=== PATIENT | male | born 1935 | race Caucasian/White ===

== ENCOUNTER 2023-06-05 18:06 | Inpatient (IN) | payer MEDICARE ==
[~2023-06-05] VITALS: Ht 180.3 cm; Wt 58.6 kg
[2023-06-05 20:27] LABS: BASOPHILS % (AUTO) 0.8 % (0.0-2.0); EOSINOPHILS % (AUTO) 2.1 % (1.0-6.0); HEMATOCRIT 40.7 % (41-53); HEMOGLOBIN 13.3 g/dL (13.5-17.5); LYMPHOCYTES # (AUTO) 1.3 K/uL (1.0-4.8); LYMPHOCYTES % (AUTO) 14.9 % (22.0-44.0); MEAN CORPUSCULAR HEMOGLOBIN 31.2 pg (26.0-34.0); MEAN CORPUSCULAR HGB CONC 32.7 G/dL (31.0-37.0); MEAN CORPUSCULAR VOLUME 96 fL (80-100); MONOCYTES # (AUTO) 0.8 K/uL (0.1-1.0); MONOCYTES % (AUTO) 9.9 % (2.0-9.0); NEUTROPHILS # (AUTO) 6.1 K/uL (1.8-7.7); NEUTROPHILS % (AUTO) 72.3 % (40.0-70.0); PLATELET COUNT (AUTO) 206 K/uL (150-450); RED BLOOD CELL COUNT(AUTO) 4.26 MIL/uL (4.50-5.90); RED CELL DISTRIBUTION WIDTH 13.7 % (11.5-14.5); WHITE BLOOD COUNT (AUTO) 8.5 K/uL (4.5-11.0)
[2023-06-05 20:37] LABS: ANION GAP 12 mmol/L (8-16); CALCIUM, TOTAL 8.5 mg/dL (8.8-10.5); CARBON DIOXIDE 25 mmol/L (22-29); CHLORIDE 100 mmol/L (98-107); CREATININE 1.09 mg/dL (0.60-1.30); GLOMERULAR FILTR. RATE CALC > 60 mL/min (>60); GLUCOSE,RANDOM 95 mg/dL (70-110); POTASSIUM 3.5 mmol/L (3.5-5.1); SODIUM SERUM 137 mmol/L (136-145); UREA NITROGEN, BLOOD 17 mg/dL (7-18)
[2023-06-05 20:43] LABS: ALCOHOL, BLOOD (SERUM) 160 mg/dL (0-10)
[2023-06-05 20:44] LABS: ALANINE AMINOTRANSFERASE 17 U/L (12-78); ALBUMIN 3.6 g/dL (3.4-5.0); ALKALINE PHOSPHATASE 100 U/L (46-116); ASPARTATE AMINOTRANSFERASE 21 U/L (15-37); BILIRUBIN,TOTAL 0.3 mg/dL (0.1-1.0); TOTAL PROTEIN, SERUM 6.5 g/dL (6.4-8.2)
[2023-06-05] MEDS ORDERED: MAGNESIUM SULFATE 2 GM, MVI, ADULT NO.1 WITH VIT K 10 ML, THIAMINE 100 MG, FOLIC ACID 1... IV ONE ×5 (21:45)
[2023-06-05] MEDS ORDERED: LORazepam 2 MG/ML VIAL IVP ONE (21:45)
[2023-06-05] MEDS ORDERED: ONDANSETRON HCL 4 MG/2 ML VIAL IVP PRN (23:00)
[2023-06-05] MEDS ORDERED: ACETAMINOPHEN 325 MG TABLET PO PRN (23:00)
[2023-06-05] MEDS ORDERED: HALOPERIDOL LACTATE 5 MG/ML VIAL IVP ONE (23:30)
[2023-06-06] MEDS ORDERED: ATOR10TA69 PO (04:43)
[2023-06-06] MEDS ORDERED: CLON0.2T2 PO (04:43)
[2023-06-06] MEDS ORDERED: LISI2.5T13 PO (04:43)
[2023-06-06] MEDS ORDERED: ERYT3.5O8 OU (04:43)
[2023-06-06] MEDS ORDERED: PREDAOS OU (04:43)
[2023-06-06] MEDS: 1: MAGNESIUM SULFATE 2 GM, MVI, ADULT NO.1 WITH VIT K 10 ML, THIAMINE 100 MG, FOLIC ACID IV SCH ×10 (06:25→21:08)
[2023-06-06] MEDS ORDERED: SODIUM CHLORIDE 0.9% 1,000 ML ONE ×2 (06:26→14:50)
[2023-06-06] MEDS ORDERED: LORazepam 2 MG TABLET PO PRN ×2 (07:00)
[2023-06-06] MEDS: LORazepam 2 MG TABLET PO SCH ×4 (08:14→21:08)
[2023-06-06] MEDS: DOCUSATE SODIUM 100 MG CAPSULE PO SCH ×2 (08:17→21:08)
[2023-06-06] MEDS: HydrALAZINE HCL 20 MG/ML VIAL IVP PRN (11:39)
[2023-06-06 15:45] VITALS: BP 116/63; PULSE 72; RESP 20; TEMP 97.9
[2023-06-06 19:41] VITALS: BP 166/88; PULSE 102; RESP 22; TEMP 98
[2023-06-07 00:15] VITALS: BP 156/96; PULSE 99; RESP 20; TEMP 98.4
[2023-06-07] MEDS: HEPARIN SODIUM,PORCINE 5,000 UNITS/ML VIAL SQ SCH ×4 (01:14→23:23)
[2023-06-07 04:27] VITALS: BP 148/89; PULSE 94; RESP 20; TEMP 97.9
[2023-06-07 08:08] VITALS: BP 125/78; PULSE 96; RESP 18; TEMP 98
[2023-06-07] MEDS: DOCUSATE SODIUM 100 MG CAPSULE PO SCH ×2 (08:54→21:00)
[2023-06-07] MEDS: LORazepam 2 MG TABLET PO SCH ×4 (08:54→19:52)
[2023-06-07] MEDS ORDERED: [UNRECOGNIZED DRUG - OTHER] PO SCH (09:00)
[2023-06-07] MEDS: ATORVASTATIN CALCIUM 10 MG TABLET PO SCH (09:07)
[2023-06-07] MEDS: 1: MAGNESIUM SULFATE 2 GM, MVI, ADULT NO.1 WITH VIT K 10 ML, THIAMINE 100 MG, FOLIC ACID IV SCH ×10 (09:07→22:22)
[2023-06-07 11:15] VITALS: BP 147/85; PULSE 87; RESP 18; TEMP 98
[2023-06-07 16:18] VITALS: BP 116/77; PULSE 92; RESP 18; TEMP 98
[2023-06-07] MEDS ORDERED: SODIUM CHLORIDE 0.9% 1,000 ML ONE (17:19)
[2023-06-07 20:12] VITALS: BP 153/88; PULSE 91; RESP 20; TEMP 97.1
[2023-06-08] VITALS (7 sets, daily range): BP systolic 124–163; BP diastolic 57–101; PULSE 96–107; RESP 18–20; TEMP 96.8–98.1
[2023-06-08] MEDS ORDERED: LORazepam 1 MG TABLET PO PRN (07:00)
[2023-06-08] MEDS: LORazepam 1 MG TABLET PO SCH ×4 (08:23→20:43)
[2023-06-08] MEDS: HydrALAZINE HCL 20 MG/ML VIAL IVP PRN (08:24)
[2023-06-08] MEDS: HEPARIN SODIUM,PORCINE 5,000 UNITS/ML VIAL SQ SCH ×2 (08:24→16:56)
[2023-06-08] MEDS: DOCUSATE SODIUM 100 MG CAPSULE PO SCH ×2 (08:24→20:43)
[2023-06-08] MEDS: ATORVASTATIN CALCIUM 10 MG TABLET PO SCH (08:29)
[2023-06-08] MEDS: 1: MAGNESIUM SULFATE 2 GM, MVI, ADULT NO.1 WITH VIT K 10 ML, THIAMINE 100 MG, FOLIC ACID IV SCH ×5 (11:41)
[2023-06-09] VITALS (7 sets, daily range): BP systolic 132–175; BP diastolic 72–99; PULSE 95–111; RESP 18–19; TEMP 97.7–98.5
[2023-06-09] MEDS: HEPARIN SODIUM,PORCINE 5,000 UNITS/ML VIAL SQ SCH ×4 (00:39→23:52)
[2023-06-09] MEDS: 1: MAGNESIUM SULFATE 2 GM, MVI, ADULT NO.1 WITH VIT K 10 ML, THIAMINE 100 MG, FOLIC ACID IV SCH ×10 (02:39→15:12)
[2023-06-09] MEDS ORDERED: LORazepam 1 MG TABLET PO PRN (07:00)
[2023-06-09] MEDS: ATORVASTATIN CALCIUM 10 MG TABLET PO SCH (08:03)
[2023-06-09] MEDS: HydrALAZINE HCL 20 MG/ML VIAL IVP PRN (08:03)
[2023-06-09] MEDS: DOCUSATE SODIUM 100 MG CAPSULE PO SCH ×2 (08:03→20:31)
[2023-06-10 04:27] VITALS: BP 158/98; PULSE 106; RESP 19; TEMP 98.7
[2023-06-10] MEDS: 1: MAGNESIUM SULFATE 2 GM, MVI, ADULT NO.1 WITH VIT K 10 ML, THIAMINE 100 MG, FOLIC ACID IV SCH ×10 (04:32→16:42)
[2023-06-10] MEDS: ChlordiazePOXIDE HCL 25 MG CAPSULE PO SCH ×3 (05:31→18:42)
[2023-06-10 06:30] LABS: BASOPHILS % (AUTO) 0.2 % (0.0-2.0); EOSINOPHILS % (AUTO) 0.2 % (1.0-6.0); HEMATOCRIT 41.7 % (41-53); LYMPHOCYTES # (AUTO) 0.5 K/uL (1.0-4.8); LYMPHOCYTES % (AUTO) 5.1 % (22.0-44.0); MEAN CORPUSCULAR HEMOGLOBIN 31.9 pg (26.0-34.0); MEAN CORPUSCULAR HGB CONC 33.6 G/dL (31.0-37.0); MEAN CORPUSCULAR VOLUME 95 fL (80-100); MONOCYTES # (AUTO) 1.1 K/uL (0.1-1.0); MONOCYTES % (AUTO) 11.6 % (2.0-9.0); NEUTROPHILS # (AUTO) 7.9 K/uL (1.8-7.7); NEUTROPHILS % (AUTO) 82.9 % (40.0-70.0); PLATELET COUNT (AUTO) 179 K/uL (150-450); RED CELL DISTRIBUTION WIDTH 13.5 % (11.5-14.5); WHITE BLOOD COUNT (AUTO) 9.6 K/uL (4.5-11.0)
[2023-06-10 06:50] LABS: ALANINE AMINOTRANSFERASE 25 U/L (12-78); ALBUMIN 2.7 g/dL (3.4-5.0); ALKALINE PHOSPHATASE 105 U/L (46-116); ANION GAP 12 mmol/L (8-16); ASPARTATE AMINOTRANSFERASE 50 U/L (15-37); BILIRUBIN,TOTAL 0.9 mg/dL (0.1-1.0); CALCIUM, TOTAL 8.6 mg/dL (8.8-10.5); CARBON DIOXIDE 23 mmol/L (22-29); CHLORIDE 101 mmol/L (98-107); CREATININE 0.59 mg/dL (0.60-1.30); GLOMERULAR FILTR. RATE CALC > 60 mL/min (>60); GLUCOSE,RANDOM 136 mg/dL (70-110); SODIUM SERUM 136 mmol/L (136-145); TOTAL PROTEIN, SERUM 6.2 g/dL (6.4-8.2); UREA NITROGEN, BLOOD 17 mg/dL (7-18)
[2023-06-10 06:58] LABS: POTASSIUM 2.9 mmol/L (3.5-5.1)
[2023-06-10 08:14] VITALS: BP 111/52; PULSE 100; RESP 20; TEMP 97.8
[2023-06-10] MEDS: ATORVASTATIN CALCIUM 10 MG TABLET PO SCH (09:00)
[2023-06-10] MEDS: DOCUSATE SODIUM 100 MG CAPSULE PO SCH ×2 (09:00→20:48)
[2023-06-10] MEDS: METOPROLOL TARTRATE 25 MG TABLET PO SCH ×2 (09:00→20:48)
[2023-06-10] MEDS: HEPARIN SODIUM,PORCINE 5,000 UNITS/ML VIAL SQ SCH ×2 (09:00→16:42)
[2023-06-10] MEDS ORDERED: SODIUM CHLORIDE 0.9% 1,000 ML ONE ×2 (09:35→20:33)
[2023-06-10] MEDS: POTASSIUM CHL 10 MEQ/WATER 50 ML IV PRN ×7 (09:38→22:33)
[2023-06-10 13:09] VITALS: BP 148/65; PULSE 103; RESP 19; TEMP 98
[2023-06-10 19:15] VITALS: BP 158/85; PULSE 84; RESP 19; TEMP 98.7
[2023-06-11 00:21] VITALS: BP 146/77; PULSE 69; RESP 18; TEMP 98.1
[2023-06-11 03:36] VITALS: BP 156/89; PULSE 77; RESP 19; TEMP 98.6
[2023-06-11] MEDS: 1: MAGNESIUM SULFATE 2 GM, MVI, ADULT NO.1 WITH VIT K 10 ML, THIAMINE 100 MG, FOLIC ACID IV SCH ×10 (06:02→20:00)
[2023-06-11] MEDS: ChlordiazePOXIDE HCL 25 MG CAPSULE PO SCH ×4 (06:02→18:00)
[2023-06-11] MEDS: HEPARIN SODIUM,PORCINE 5,000 UNITS/ML VIAL SQ SCH ×3 (08:00→15:17)
[2023-06-11 08:40] VITALS: BP 141/69; PULSE 83; RESP 20; TEMP 98.9
[2023-06-11] MEDS: DOCUSATE SODIUM 100 MG CAPSULE PO SCH ×2 (09:00→20:00)
[2023-06-11] MEDS: ATORVASTATIN CALCIUM 10 MG TABLET PO SCH (09:00)
[2023-06-11] MEDS: METOPROLOL TARTRATE 25 MG TABLET PO SCH ×2 (09:00→20:00)
[2023-06-11 14:26] VITALS: BP 153/82; PULSE 88; RESP 20; TEMP 98.2
[2023-06-11] MEDS: LORazepam 2 MG/ML VIAL IVP SCH (15:34)
[2023-06-11] MEDS ORDERED: SODIUM CHLORIDE 0.9% 1,000 ML ONE (19:42)
[2023-06-11 20:00] VITALS: BP 159/77; PULSE 68; RESP 18; TEMP 98
[2023-06-12 02:45] VITALS: BP 146/73; PULSE 112; RESP 18; TEMP 100.2
[2023-06-12 05:51] VITALS: BP 141/72; PULSE 110; RESP 20; TEMP 100.2
[2023-06-12] MEDS: LORazepam 2 MG/ML VIAL IVP SCH ×4 (08:00→22:58)
[2023-06-12 08:34] VITALS: BP 110/64; PULSE 103; RESP 18; TEMP 99.9
[2023-06-12] MEDS: HEPARIN SODIUM,PORCINE 5,000 UNITS/ML VIAL SQ SCH ×3 (09:00→16:44)
[2023-06-12] MEDS: 1: MAGNESIUM SULFATE 2 GM, MVI, ADULT NO.1 WITH VIT K 10 ML, THIAMINE 100 MG, FOLIC ACID IV SCH ×10 (11:02→22:14)
[2023-06-12 11:20] VITALS: BP 120/58; PULSE 90; RESP 18; TEMP 97.3
[2023-06-12 13:01] LABS: BASOPHILS % (AUTO) 0.6 % (0.0-2.0); EOSINOPHILS % (AUTO) 0 % (1.0-6.0); HEMATOCRIT 35.6 % (41-53); HEMOGLOBIN 11.8 g/dL (13.5-17.5); LYMPHOCYTES # (AUTO) 0.5 K/uL (1.0-4.8); LYMPHOCYTES % (AUTO) 3.2 % (22.0-44.0); MEAN CORPUSCULAR HEMOGLOBIN 31.6 pg (26.0-34.0); MEAN CORPUSCULAR HGB CONC 33.1 G/dL (31.0-37.0); MEAN CORPUSCULAR VOLUME 96 fL (80-100); NEUTROPHILS # (AUTO) 13.4 K/uL (1.8-7.7); PLATELET COUNT (AUTO) 143 K/uL (150-450); RED BLOOD CELL COUNT(AUTO) 3.73 MIL/uL (4.50-5.90); RED CELL DISTRIBUTION WIDTH 13.4 % (11.5-14.5)
[2023-06-12 13:08] LABS: NEUTROPHILS % (AUTO) 89.2 % (40.0-70.0)
[2023-06-12] MEDS: DOCUSATE SODIUM 100 MG CAPSULE PO SCH ×2 (13:16→21:18)
[2023-06-12] MEDS: METOPROLOL TARTRATE 25 MG TABLET PO SCH ×2 (13:17→21:18)
[2023-06-12] MEDS: ATORVASTATIN CALCIUM 10 MG TABLET PO SCH (13:17)
[2023-06-12 13:20] LABS: ANION GAP 8 mmol/L (8-16); CALCIUM, TOTAL 7.8 mg/dL (8.8-10.5); CARBON DIOXIDE 25 mmol/L (22-29); CHLORIDE 103 mmol/L (98-107); CREATININE 0.74 mg/dL (0.60-1.30); GLOMERULAR FILTR. RATE CALC > 60 mL/min (>60); GLUCOSE,RANDOM 106 mg/dL (70-110); POTASSIUM 3.3 mmol/L (3.5-5.1); SODIUM SERUM 136 mmol/L (136-145); UREA NITROGEN, BLOOD 19 mg/dL (7-18)
[2023-06-12 13:26] LABS: ALANINE AMINOTRANSFERASE 635 U/L (12-78); ALBUMIN 2.2 g/dL (3.4-5.0); ALKALINE PHOSPHATASE 451 U/L (46-116); ASPARTATE AMINOTRANSFERASE 841 U/L (15-37); BILIRUBIN,TOTAL 2.9 mg/dL (0.1-1.0); TOTAL PROTEIN, SERUM 5.2 g/dL (6.4-8.2)
[2023-06-12] MEDS: POTASSIUM CHLORIDE 20 MEQ ER TABLET PO PRN (15:57)
[2023-06-12 16:11] VITALS: BP 128/61; PULSE 101; RESP 18; TEMP 97.6
[2023-06-12 19:43] LABS: INR 1.1 (0.9-1.1)
[2023-06-12 20:43] VITALS: BP 148/77; PULSE 83; RESP 18; TEMP 97.6
[2023-06-12] MEDS: POTASSIUM CHL 10 MEQ/WATER 50 ML IV PRN (22:14)
[2023-06-13] VITALS (7 sets, daily range): BP systolic 127–177; BP diastolic 55–113; PULSE 70–98; RESP 18–20; TEMP 97.1–98.2
[2023-06-13] MEDS: HEPARIN SODIUM,PORCINE 5,000 UNITS/ML VIAL SQ SCH ×5 (00:42→23:50)
[2023-06-13] MEDS: POTASSIUM CHLORIDE 20 MEQ ER TABLET PO PRN (00:42)
[2023-06-13] MEDS: LORazepam 2 MG/ML VIAL IVP PRN (02:14)
[2023-06-13 07:29] LABS: POTASSIUM 3.8 mmol/L (3.5-5.1)
[2023-06-13] MEDS: LORazepam 2 MG/ML VIAL IVP SCH (08:00)
[2023-06-13] MEDS: METOPROLOL TARTRATE 25 MG TABLET PO SCH ×3 (09:00→21:00)
[2023-06-13] MEDS: ATORVASTATIN CALCIUM 10 MG TABLET PO SCH (09:00)
[2023-06-13] MEDS: DOCUSATE SODIUM 100 MG CAPSULE PO SCH ×2 (09:00→21:00)
[2023-06-13] MEDS ORDERED: IOHEXOL 350 MG/ML 100 ML VIAL ONE (12:09)
[2023-06-13] MEDS ORDERED: SODIUM CHLORIDE 0.9% 100 ML ONE (12:09)
[2023-06-13 12:11] LABS: BASOPHILS % (AUTO) 0.6 % (0.0-2.0); EOSINOPHILS % (AUTO) 0.3 % (1.0-6.0); HEMOGLOBIN 14.4 g/dL (13.5-17.5); LYMPHOCYTES # (AUTO) 0.6 K/uL (1.0-4.8); LYMPHOCYTES % (AUTO) 4.4 % (22.0-44.0); MEAN CORPUSCULAR HEMOGLOBIN 32.3 pg (26.0-34.0); MEAN CORPUSCULAR HGB CONC 33.5 G/dL (31.0-37.0); MEAN CORPUSCULAR VOLUME 96 fL (80-100); MONOCYTES # (AUTO) 0.9 K/uL (0.1-1.0); MONOCYTES % (AUTO) 7.4 % (2.0-9.0); NEUTROPHILS # (AUTO) 11.1 K/uL (1.8-7.7); PLATELET COUNT (AUTO) 139 K/uL (150-450); RED BLOOD CELL COUNT(AUTO) 4.46 MIL/uL (4.50-5.90); RED CELL DISTRIBUTION WIDTH 13.9 % (11.5-14.5); WHITE BLOOD COUNT (AUTO) 12.7 K/uL (4.5-11.0)
[2023-06-13] MEDS: 1: MAGNESIUM SULFATE 2 GM, MVI, ADULT NO.1 WITH VIT K 10 ML, THIAMINE 100 MG, FOLIC ACID IV SCH ×5 (12:19)
[2023-06-13 12:21] LABS: ALANINE AMINOTRANSFERASE 513 U/L (12-78); ALBUMIN 2.5 g/dL (3.4-5.0); ALKALINE PHOSPHATASE 426 U/L (46-116); ANION GAP 19 mmol/L (8-16); ASPARTATE AMINOTRANSFERASE 358 U/L (15-37); CALCIUM, TOTAL 8.6 mg/dL (8.8-10.5); CARBON DIOXIDE 19 mmol/L (22-29); CHLORIDE 100 mmol/L (98-107); GLOMERULAR FILTR. RATE CALC > 60 mL/min (>60); GLUCOSE,RANDOM 109 mg/dL (70-110); SODIUM SERUM 138 mmol/L (136-145); TOTAL PROTEIN, SERUM 6.2 g/dL (6.4-8.2); UREA NITROGEN, BLOOD 20 mg/dL (7-18)
[2023-06-13 12:22] LABS: NEUTROPHILS % (AUTO) 87.3 % (40.0-70.0)
[2023-06-13 13:46] LABS: APPEARANCE,URINE CLEAR (CLEAR); COLOR,URINE DARK YELLOW (YELLOW); GLUCOSE, URINE (UA) NEGATIVE (NEGATIVE); KETONES,URINE TRACE mg/dL (NEGATIVE); LEUKOCYTE ESTERASE ,URINE NEGATIVE (NEGATIVE); NITRATE,URINE NEGATIVE (NEGATIVE); OCCULT BLOOD,URINE NEGATIVE (NEGATIVE); PROTEIN,URINE 30-70 mg/dL (NEGATIVE); SPECIFIC GRAVITIY, URINE 1.024 (1.003-1.030); UROBILINOGEN,URINE >12.0 mg/dL (<=1.0)
[2023-06-13 13:53] LABS: BILIRUBIN,URINE MODERATE (NEGATIVE)
[2023-06-13 14:00] LABS: RBC,URINE None Seen /HPF (0-2)
[2023-06-13 14:01] LABS: BACTERIA,URINE None Seen /HPF (None Seen)
[2023-06-13] MEDS: HydrALAZINE HCL 20 MG/ML VIAL IVP PRN (15:39)
[2023-06-13] MEDS: SODIUM CHLORIDE 0.9% 1,000 ML IV SCH (23:28)
[2023-06-13] MEDS: AmLODIPine BESYLATE 5 MG TABLET PO ONE ×2 (23:28→23:39)
[2023-06-14] VITALS (7 sets, daily range): BP systolic 116–163; BP diastolic 56–93; PULSE 82–100; RESP 17–20; TEMP 97–98
[2023-06-14] MEDS: 1: MAGNESIUM SULFATE 2 GM, MVI, ADULT NO.1 WITH VIT K 10 ML, THIAMINE 100 MG, FOLIC ACID IV SCH ×10 (02:11→16:10)
[2023-06-14 03:06] LABS: HEPATITIS A ANTIBODY IGM Negative (Negative); HEPATITIS B CORE IGM Negative (Negative); HEPATITIS C AB (EIA) Non Reactive (Non Reactive)
[2023-06-14] MEDS: METOPROLOL TARTRATE 25 MG TABLET PO SCH ×2 (08:51→20:27)
[2023-06-14] MEDS: ATORVASTATIN CALCIUM 10 MG TABLET PO SCH (08:51)
[2023-06-14] MEDS: HEPARIN SODIUM,PORCINE 5,000 UNITS/ML VIAL SQ SCH ×3 (08:51→23:29)
[2023-06-14] MEDS: AmLODIPine BESYLATE 10 MG TABLET PO SCH (08:51)
[2023-06-14] MEDS: DOCUSATE SODIUM 100 MG CAPSULE PO SCH ×2 (08:51→20:27)
[2023-06-14] MEDS: SODIUM CHLORIDE 0.9% 1,000 ML IV SCH (12:46)
[2023-06-14 16:13] LABS: BASOPHILS % (AUTO) 0.1 % (0.0-2.0); EOSINOPHILS % (AUTO) 0.7 % (1.0-6.0); HEMATOCRIT 40.3 % (41-53); HEMOGLOBIN 13.6 g/dL (13.5-17.5); LYMPHOCYTES # (AUTO) 0.5 K/uL (1.0-4.8); MEAN CORPUSCULAR HEMOGLOBIN 32.1 pg (26.0-34.0); MEAN CORPUSCULAR HGB CONC 33.8 G/dL (31.0-37.0); MEAN CORPUSCULAR VOLUME 95 fL (80-100); MONOCYTES # (AUTO) 1.1 K/uL (0.1-1.0); MONOCYTES % (AUTO) 11.1 % (2.0-9.0); NEUTROPHILS # (AUTO) 8.3 K/uL (1.8-7.7); NEUTROPHILS % (AUTO) 83.1 % (40.0-70.0); PLATELET COUNT (AUTO) 133 K/uL (150-450); RED BLOOD CELL COUNT(AUTO) 4.25 MIL/uL (4.50-5.90); RED CELL DISTRIBUTION WIDTH 13.9 % (11.5-14.5)
[2023-06-14 16:26] LABS: CALCIUM, TOTAL 8.6 mg/dL (8.8-10.5); CARBON DIOXIDE 22 mmol/L (22-29); CHLORIDE 99 mmol/L (98-107); CREATININE 0.56 mg/dL (0.60-1.30); GLOMERULAR FILTR. RATE CALC > 60 mL/min (>60); GLUCOSE,RANDOM 89 mg/dL (70-110); POTASSIUM 3.3 mmol/L (3.5-5.1); UREA NITROGEN, BLOOD 17 mg/dL (7-18)
[2023-06-14 16:35] LABS: ALANINE AMINOTRANSFERASE 261 U/L (12-78); ALBUMIN 2.1 g/dL (3.4-5.0); ALKALINE PHOSPHATASE 429 U/L (46-116); ANION GAP 10 mmol/L (8-16); ASPARTATE AMINOTRANSFERASE 95 U/L (15-37); BILIRUBIN,TOTAL 3.4 mg/dL (0.1-1.0); SODIUM SERUM 131 mmol/L (136-145); TOTAL PROTEIN, SERUM 5.5 g/dL (6.4-8.2)
[2023-06-14] MEDS: POTASSIUM CHLORIDE 20 MEQ ER TABLET PO PRN (16:59)
[2023-06-14] MEDS: ERYTHROMYCIN 0.5% 1 GM TUBE OPHTHALMIC OINTMENT OU SCH (20:27)
[2023-06-14] MEDS: LORazepam 2 MG/ML VIAL IVP PRN (20:31)
[2023-06-14 21:09] LABS: PHOSPHORUS 3.7 mg/dL (2.5-4.9)
[2023-06-15] MEDS: SODIUM CHLORIDE 0.9% 1,000 ML IV SCH (02:35)
[2023-06-15] MEDS: 1: MAGNESIUM SULFATE 2 GM, MVI, ADULT NO.1 WITH VIT K 10 ML, THIAMINE 100 MG, FOLIC ACID IV SCH ×15 (04:43→18:48)
[2023-06-15 05:39] VITALS: BP 148/85; PULSE 92; RESP 19; TEMP 97.8
[2023-06-15 07:15] VITALS: BP 149/90; PULSE 94; RESP 18; TEMP 98
[2023-06-15] MEDS: HEPARIN SODIUM,PORCINE 5,000 UNITS/ML VIAL SQ SCH ×2 (08:00→16:12)
[2023-06-15] MEDS: DOCUSATE SODIUM 100 MG CAPSULE PO SCH ×2 (09:40→21:03)
[2023-06-15] MEDS: ATORVASTATIN CALCIUM 10 MG TABLET PO SCH (09:40)
[2023-06-15] MEDS: METOPROLOL TARTRATE 25 MG TABLET PO SCH ×2 (09:40→21:03)
[2023-06-15] MEDS: ERYTHROMYCIN 0.5% 1 GM TUBE OPHTHALMIC OINTMENT OU SCH ×6 (09:40→21:00)
[2023-06-15] MEDS: AmLODIPine BESYLATE 10 MG TABLET PO SCH (09:40)
[2023-06-15 10:27] LABS: BASOPHILS % (AUTO) 0.1 % (0.0-2.0); EOSINOPHILS % (AUTO) 0.1 % (1.0-6.0); HEMATOCRIT 38.4 % (41-53); HEMOGLOBIN 12.7 g/dL (13.5-17.5); LYMPHOCYTES # (AUTO) 0.3 K/uL (1.0-4.8); LYMPHOCYTES % (AUTO) 2.4 % (22.0-44.0); MEAN CORPUSCULAR HEMOGLOBIN 31.2 pg (26.0-34.0); MEAN CORPUSCULAR VOLUME 94 fL (80-100); MONOCYTES # (AUTO) 0.9 K/uL (0.1-1.0); MONOCYTES % (AUTO) 8.1 % (2.0-9.0); NEUTROPHILS # (AUTO) 9.6 K/uL (1.8-7.7); PLATELET COUNT (AUTO) 129 K/uL (150-450); RED BLOOD CELL COUNT(AUTO) 4.07 MIL/uL (4.50-5.90); RED CELL DISTRIBUTION WIDTH 13.9 % (11.5-14.5); WHITE BLOOD COUNT (AUTO) 10.7 K/uL (4.5-11.0)
[2023-06-15 10:29] LABS: NEUTROPHILS % (AUTO) 89.3 % (40.0-70.0)
[2023-06-15 10:30] LABS: RBC MORPHOLOGY COMMENT NORMAL RBC MORPH
[2023-06-15 10:39] LABS: ANION GAP 7 mmol/L (8-16); CALCIUM, TOTAL 8.1 mg/dL (8.8-10.5); CARBON DIOXIDE 26 mmol/L (22-29); CHLORIDE 103 mmol/L (98-107); CREATININE 0.59 mg/dL (0.60-1.30); GLOMERULAR FILTR. RATE CALC > 60 mL/min (>60); GLUCOSE,RANDOM 146 mg/dL (70-110); POTASSIUM 3.1 mmol/L (3.5-5.1); SODIUM SERUM 136 mmol/L (136-145); UREA NITROGEN, BLOOD 14 mg/dL (7-18)
[2023-06-15 10:45] LABS: ALANINE AMINOTRANSFERASE 233 U/L (12-78); ALKALINE PHOSPHATASE 540 U/L (46-116); ASPARTATE AMINOTRANSFERASE 122 U/L (15-37); BILIRUBIN,TOTAL 4.5 mg/dL (0.1-1.0); TOTAL PROTEIN, SERUM 5.3 g/dL (6.4-8.2)
[2023-06-15] MEDS: POTASSIUM CHLORIDE 20 MEQ ER TABLET PO PRN ×2 (10:52→18:23)
[2023-06-15 11:43] VITALS: BP 130/81; PULSE 84; RESP 18; TEMP 98
[2023-06-15 19:50] VITALS: BP 155/81; PULSE 93; RESP 20; TEMP 97.8
[2023-06-15] MEDS: LORazepam 2 MG/ML VIAL IVP PRN (20:41)
[2023-06-16] MEDS: LORazepam 2 MG/ML VIAL IVP PRN ×2 (00:31→19:53)
[2023-06-16] MEDS: HEPARIN SODIUM,PORCINE 5,000 UNITS/ML VIAL SQ SCH ×2 (01:50→08:43)
[2023-06-16 04:20] VITALS: BP 145/81; PULSE 60; RESP 16; TEMP 97.6
[2023-06-16] MEDS: 1: MAGNESIUM SULFATE 2 GM, MVI, ADULT NO.1 WITH VIT K 10 ML, THIAMINE 100 MG, FOLIC ACID IV SCH ×10 (07:57→23:18)
[2023-06-16 08:02] VITALS: BP 120/83; PULSE 82; RESP 16; TEMP 97.3
[2023-06-16] MEDS: METOPROLOL TARTRATE 25 MG TABLET PO SCH ×3 (08:43→19:53)
[2023-06-16] MEDS: ATORVASTATIN CALCIUM 10 MG TABLET PO SCH (08:43)
[2023-06-16] MEDS: AmLODIPine BESYLATE 10 MG TABLET PO SCH ×2 (08:44→08:55)
[2023-06-16] MEDS: DOCUSATE SODIUM 100 MG CAPSULE PO SCH ×3 (08:45→19:53)
[2023-06-16] MEDS: SODIUM CHLORIDE 0.9% 1,000 ML IV SCH ×2 (11:24→16:12)
[2023-06-16] MEDS ORDERED: LORazepam 2 MG/ML VIAL IM ONE (12:30)
[2023-06-16] MEDS: ERYTHROMYCIN 0.5% 1 GM TUBE OPHTHALMIC OINTMENT OU SCH ×4 (12:38→19:53)
[2023-06-16] MEDS: ASPIRIN 81 MG CHEWABLE TABLET PO SCH ×2 (12:45→16:15)
[2023-06-16 16:06] VITALS: BP 158/93; PULSE 80; RESP 18; TEMP 98.8
[2023-06-16] MEDS: NYSTATIN 500,000 UNITS/5 ML SUSPENSION UDCUP PO SCH ×2 (17:53→23:18)
[2023-06-16 20:00] VITALS: BP 176/91; PULSE 96; RESP 20; TEMP 98.5
[2023-06-16 21:47] VITALS: BP 130/90; PULSE 91; RESP 17; TEMP 98.8
[2023-06-17] MEDS: 1: MAGNESIUM SULFATE 2 GM, MVI, ADULT NO.1 WITH VIT K 10 ML, THIAMINE 100 MG, FOLIC ACID IV SCH ×5 (05:17)
[2023-06-17] MEDS: NYSTATIN 500,000 UNITS/5 ML SUSPENSION UDCUP PO SCH ×4 (05:59→18:20)
[2023-06-17 06:08] VITALS: BP 138/80; PULSE 85; RESP 18; TEMP 98.4
[2023-06-17 07:18] VITALS: BP 140/82; PULSE 86; RESP 18; TEMP 98.5
[2023-06-17] MEDS: AmLODIPine BESYLATE 10 MG TABLET PO SCH (09:06)
[2023-06-17] MEDS: ERYTHROMYCIN 0.5% 1 GM TUBE OPHTHALMIC OINTMENT OU SCH ×5 (09:06→20:07)
[2023-06-17] MEDS: METOPROLOL TARTRATE 25 MG TABLET PO SCH ×3 (09:06→21:00)
[2023-06-17] MEDS: ATORVASTATIN CALCIUM 10 MG TABLET PO SCH (09:06)
[2023-06-17] MEDS: DOCUSATE SODIUM 100 MG CAPSULE PO SCH ×3 (09:06→21:00)
[2023-06-17] MEDS: ASPIRIN 81 MG CHEWABLE TABLET PO SCH (09:06)
[2023-06-17 10:21] LABS: BASOPHILS % (AUTO) 0.2 % (0.0-2.0); EOSINOPHILS % (AUTO) 0.9 % (1.0-6.0); HEMATOCRIT 38.5 % (41-53); HEMOGLOBIN 12.6 g/dL (13.5-17.5); LYMPHOCYTES # (AUTO) 0.7 K/uL (1.0-4.8); LYMPHOCYTES % (AUTO) 6.3 % (22.0-44.0); MEAN CORPUSCULAR HEMOGLOBIN 30.6 pg (26.0-34.0); MEAN CORPUSCULAR HGB CONC 32.7 G/dL (31.0-37.0); MEAN CORPUSCULAR VOLUME 94 fL (80-100); MONOCYTES # (AUTO) 0.7 K/uL (0.1-1.0); MONOCYTES % (AUTO) 6.3 % (2.0-9.0); NEUTROPHILS # (AUTO) 9.4 K/uL (1.8-7.7); PLATELET COUNT (AUTO) 144 K/uL (150-450); RED BLOOD CELL COUNT(AUTO) 4.12 MIL/uL (4.50-5.90); WHITE BLOOD COUNT (AUTO) 10.9 K/uL (4.5-11.0)
[2023-06-17 10:32] LABS: NEUTROPHILS % (AUTO) 86.3 % (40.0-70.0)
[2023-06-17 10:35] LABS: ANION GAP 11 mmol/L (8-16); CALCIUM, TOTAL 7.8 mg/dL (8.8-10.5); CARBON DIOXIDE 24 mmol/L (22-29); CHLORIDE 100 mmol/L (98-107); CREATININE 0.49 mg/dL (0.60-1.30); GLOMERULAR FILTR. RATE CALC > 60 mL/min (>60); GLUCOSE,RANDOM 85 mg/dL (70-110); SODIUM SERUM 135 mmol/L (136-145); UREA NITROGEN, BLOOD 8 mg/dL (7-18)
[2023-06-17 11:34] LABS: ALANINE AMINOTRANSFERASE 198 U/L (12-78); ALBUMIN 2.2 g/dL (3.4-5.0); ALKALINE PHOSPHATASE 533 U/L (46-116); ASPARTATE AMINOTRANSFERASE 124 U/L (15-37); BILIRUBIN,TOTAL 4.9 mg/dL (0.1-1.0); TOTAL PROTEIN, SERUM 5.3 g/dL (6.4-8.2)
[2023-06-17] MEDS: POTASSIUM CHLORIDE 20 MEQ ER TABLET PO PRN (11:51)
[2023-06-17 15:17] VITALS: BP 136/84; PULSE 84; RESP 20; TEMP 98.1
[2023-06-17 20:27] VITALS: BP 130/70; PULSE 67; RESP 18; TEMP 98.4
[2023-06-18 05:40] VITALS: BP 136/82; PULSE 82; RESP 18; TEMP 98.1
[2023-06-18] MEDS: NYSTATIN 500,000 UNITS/5 ML SUSPENSION UDCUP PO SCH ×5 (06:00→23:29)
[2023-06-18] MEDS: ATORVASTATIN CALCIUM 10 MG TABLET PO SCH (09:32)
[2023-06-18] MEDS: ASPIRIN 81 MG CHEWABLE TABLET PO SCH (09:32)
[2023-06-18] MEDS: DOCUSATE SODIUM 100 MG CAPSULE PO SCH ×2 (09:32→20:47)
[2023-06-18] MEDS: ERYTHROMYCIN 0.5% 1 GM TUBE OPHTHALMIC OINTMENT OU SCH ×4 (09:32→20:47)
[2023-06-18] MEDS: AmLODIPine BESYLATE 10 MG TABLET PO SCH (09:32)
[2023-06-18] MEDS: METOPROLOL TARTRATE 25 MG TABLET PO SCH ×2 (09:32→20:47)
[2023-06-18] MEDS: AMOX TR/POT CLAV 875 MG/125 MG TABLET PO SCH ×2 (13:41→20:47)
[2023-06-18] MEDS ORDERED: ASPI-1450 PO (15:26)
[2023-06-18] MEDS ORDERED: AMLO-258 PO (15:27)
[2023-06-18] MEDS ORDERED: METO25 PO (15:28)
[2023-06-18] MEDS ORDERED: NYST100033 PO (15:29)
[2023-06-18 15:33] LABS: BASOPHILS % (AUTO) 0.6 % (0.0-2.0); EOSINOPHILS % (AUTO) 0.9 % (1.0-6.0); HEMATOCRIT 38.1 % (41-53); HEMOGLOBIN 12.8 g/dL (13.5-17.5); LYMPHOCYTES # (AUTO) 0.8 K/uL (1.0-4.8); LYMPHOCYTES % (AUTO) 7.8 % (22.0-44.0); MEAN CORPUSCULAR HEMOGLOBIN 31.5 pg (26.0-34.0); MEAN CORPUSCULAR HGB CONC 33.5 G/dL (31.0-37.0); MEAN CORPUSCULAR VOLUME 94 fL (80-100); MONOCYTES # (AUTO) 0.8 K/uL (0.1-1.0); MONOCYTES % (AUTO) 7.5 % (2.0-9.0); NEUTROPHILS # (AUTO) 8.9 K/uL (1.8-7.7); NEUTROPHILS % (AUTO) 83.2 % (40.0-70.0); PLATELET COUNT (AUTO) 153 K/uL (150-450); RED BLOOD CELL COUNT(AUTO) 4.04 MIL/uL (4.50-5.90); RED CELL DISTRIBUTION WIDTH 14.2 % (11.5-14.5); WHITE BLOOD COUNT (AUTO) 10.7 K/uL (4.5-11.0)
[2023-06-18 15:44] LABS: CALCIUM, TOTAL 8.1 mg/dL (8.8-10.5); CARBON DIOXIDE 29 mmol/L (22-29); CREATININE 0.69 mg/dL (0.60-1.30); GLOMERULAR FILTR. RATE CALC > 60 mL/min (>60); GLUCOSE,RANDOM 163 mg/dL (70-110); UREA NITROGEN, BLOOD 14 mg/dL (7-18)
[2023-06-18 15:55] LABS: ALANINE AMINOTRANSFERASE 193 U/L (12-78); ALKALINE PHOSPHATASE 617 U/L (46-116); ASPARTATE AMINOTRANSFERASE 132 U/L (15-37); BILIRUBIN,TOTAL 3.9 mg/dL (0.1-1.0); TOTAL PROTEIN, SERUM 5.1 g/dL (6.4-8.2)
[2023-06-18 16:42] LABS: ANION GAP 6 mmol/L (8-16); CHLORIDE 99 mmol/L (98-107); POTASSIUM 3.3 mmol/L (3.5-5.1); SODIUM SERUM 134 mmol/L (136-145)
[2023-06-18 19:28] VITALS: BP 124/67; PULSE 69; RESP 18; TEMP 98.3
[2023-06-18] MEDS: LORazepam 2 MG/ML VIAL IVP PRN (22:09)
[2023-06-18] MEDS: POTASSIUM CHLORIDE 20 MEQ ER TABLET PO PRN (22:11)
[2023-06-18] MEDS ORDERED: MELATONIN 3 MG TABLET PO PRN (23:30)
[2023-06-18] MEDS ORDERED: SODIUM CHLORIDE 0.9% 500 ML IV ONE (23:48)
[2023-06-19 04:55] VITALS: BP 143/68; PULSE 69; RESP 18; TEMP 98.8
[2023-06-19] MEDS: NYSTATIN 500,000 UNITS/5 ML SUSPENSION UDCUP PO SCH ×2 (06:29→12:36)
[2023-06-19 07:09] LABS: ALANINE AMINOTRANSFERASE 212 U/L (12-78); ALBUMIN 2.1 g/dL (3.4-5.0); ALKALINE PHOSPHATASE 675 U/L (46-116); ANION GAP 6 mmol/L (8-16); ASPARTATE AMINOTRANSFERASE 145 U/L (15-37); BILIRUBIN,TOTAL 3.4 mg/dL (0.1-1.0); CALCIUM, TOTAL 8.3 mg/dL (8.8-10.5); CARBON DIOXIDE 28 mmol/L (22-29); CHLORIDE 100 mmol/L (98-107); CREATININE 0.63 mg/dL (0.60-1.30); GLOMERULAR FILTR. RATE CALC > 60 mL/min (>60); GLUCOSE,RANDOM 128 mg/dL (70-110); POTASSIUM 3.7 mmol/L (3.5-5.1); SODIUM SERUM 134 mmol/L (136-145); TOTAL PROTEIN, SERUM 5.4 g/dL (6.4-8.2); UREA NITROGEN, BLOOD 14 mg/dL (7-18)
[2023-06-19 07:25] VITALS: BP 138/72; PULSE 70; RESP 18; TEMP 98.4
[2023-06-19] MEDS: AmLODIPine BESYLATE 10 MG TABLET PO SCH (08:13)
[2023-06-19] MEDS: AMOX TR/POT CLAV 875 MG/125 MG TABLET PO SCH (08:13)
[2023-06-19] MEDS: METOPROLOL TARTRATE 25 MG TABLET PO SCH (08:13)
[2023-06-19] MEDS: ERYTHROMYCIN 0.5% 1 GM TUBE OPHTHALMIC OINTMENT OU SCH ×2 (08:20→13:00)
[2023-06-19] MEDS: ASPIRIN 81 MG CHEWABLE TABLET PO SCH (08:22)
[2023-06-19] MEDS: DOCUSATE SODIUM 100 MG CAPSULE PO SCH (08:22)
[2023-06-19] MEDS: ATORVASTATIN CALCIUM 10 MG TABLET PO SCH (08:23)
[2023-06-19] MEDS ORDERED: POTASSIUM CHLORIDE 20 MEQ ER TABLET PO SCH (09:00)
[2023-06-19 15:00] VITALS: BP 126/76; PULSE 71; RESP 19; TEMP 98.2
== END 2023-06-19 18:00 | DRG 91 ==
LOC: EMS 18:07 → UNDOADMIN 06-06 02:00 → AHU 06-06 02:00 → 5S 06-06 02:01 → AHU 06-06 12:28 → 5S 06-13 11:15 → UNDOADMIN 06-14 13:37 → 5S 06-14 13:37 → 6S 06-15 14:42
PROVIDERS: ADMIT Internal Medicine; ATTEND Hospitalist
PROC: 05HB33Z Insertion of Infusion Device into Right Basilic Vein, Percutaneous Approach (ICD-10-PCS; principal; 2023-06-09)
PROC: B54MZZA Ultrasonography of Right Upper Extremity Veins, Guidance (ICD-10-PCS; 2023-06-09)
DX: G92.8 Other toxic encephalopathy (principal); E43 Unspecified severe protein-calorie malnutrition; F10.239 Alcohol dependence with withdrawal, unspecified; Z68.1 Body mass index [BMI] 19.9 or less, adult; I10 Essential (primary) hypertension; S00.03XA Contusion of scalp, initial encounter; K76.0 Fatty (change of) liver, not elsewhere classified; E87.6 Hypokalemia; K80.20 Calculus of gallbladder without cholecystitis without obstruction; E78.5 Hyperlipidemia, unspecified; H10.9 Unspecified conjunctivitis; F10.229 Alcohol dependence with intoxication, unspecified; Y90.6 Blood alcohol level of 120-199 mg/100 ml; R79.89 Other specified abnormal findings of blood chemistry; J44.9 Chronic obstructive pulmonary disease, unspecified; N40.0 Benign prostatic hyperplasia without lower urinary tract symptoms; Z53.20 Procedure and treatment not carried out because of patient's decision for unspecified reasons; W18.39XA Other fall on same level, initial encounter; Y93.89 Activity, other specified; Y92.89 Other specified places as the place of occurrence of the external cause; Y99.8 Other external cause status; Z78.1 Physical restraint status; Z91.81 History of falling; Z98.1 Arthrodesis status
CPT/HCPCS: 36245; 36569; 70450; 71045; 72125; 74177; 76705; 76937; 80048; 80053; 80074; 80076; 81001; 81003; 82140; 83690; 83735; 84100; 84132; 85025; 85610; 87040; 93005; 93306; 97163; 97166; 97530; 97535; 99285; G0480; J0360; J1630; J1644; J2060; J3411; J3475; J3480; J3490; J7030; J7040; J7050; Q9967; 36415-L1; 36415-TC